=== PATIENT | male | born 1945 | race Caucasian/White ===

== ENCOUNTER 2016-09-18 08:43 | Emergency (ER) | payer MEDICARE ==
--- NOTE | 2016-10-04 15:23 | ER ---
ADMIT: 09/18/2016 RM/LOC: ER [facility] MR#: [id number] ACC#: [id number] [id number] [place], [place] [id number] [place] [address] Emergency Room Report SEX: M AGE: 71 : 1945 DATE: 09/18/2016 HISTORY OF PRESENT ILLNESS: The patient is a 71-year-old with a blind spot in his vision that started last night, and as of today, it is resolved. He said he was eating supper with his when she had some difficulty understanding some of the words but it is resolved. 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 I explained to them that if he did have a stroke, it was a little too late to do much, but we are going to go ahead and do a CT scan and take a look and we did. On physical examination, he has no deficit. He explains that there is a parietal area that had a small side effect from the previous stroke and he just wanted to let me know about that, so when they did the CT scan, they would be aware that that was something that was present. PAST MEDICAL HISTORY: 1. Hypertension. 2. Diabetes. 3. Knee arthritis. 4. CVA while he was having a rehab. 5. IA in 2004. 6. An appendectomy and stents with CABG. MEDICATIONS: Include: 1. Carvedilol. 2. Lisinopril. 3. Metformin. 4. Meloxicam. 5. Baby aspirin. 6. Atorvastatin. 7. Tamsulosin. PHYSICAL EXAMINATION: He is pretty comfortable right now. is at bedside. On exam, there is no neurological deficit. The S[place] stroke scale is 0. On arrival and discharge, he did have a little bit of peripheral lateral gaze issues where he was unable to see much and had to move his head, but he says that something that he might have had in a while back. He did have an eye exam about 2 weeks ago at the [facility] and everything was fine. LABORATORY AND RADIOGRAPHIC DATA: His white count was normal, hemoglobin is 12.6 with a hematocrit of 38. Calcium 8.3. CK 162 with a normal troponin. He ADMIT: 09/18/2016 RM/LOC: ER [facility] MR#: [id number] [address] [id number] RIAZ HENRY [address] [place] [address] Emergency Room Report SEX: M AGE: 71 : 1945 has chest x-ray does show sternotomy changes, otherwise, it is negative. CT of the head shows hypodensity within the right parietal lobe 1.3 cm inside. No acute changes identified. EKG sinus shaunna at 57. The patient states he is hungry so he is going home and eat and wait [facility]. His next appointment actually is in December 2016. CLINICAL IMPRESSION: Suspected transient ischemic attack. Advised that he will have to follow up with the [facility]. I contacted [facility], and [facility]or anticoagulant therapy. The patient verbalized understanding. at bedside. They will be [facility] with the [facility]. SHYANNE Anderson / Fabian Gonzalez MD / seanl JOB #: [id number] CC: Fabian Gonzalez MD, Attending Physician [facility] Physician, Family Physician
== END 2016-09-18 12:15 | disposition home or self-care (01) ==
LOC: ER 08:43
DX: H54.7 Unspecified visual loss (principal); I10 Essential (primary) hypertension; E11.9 Type 2 diabetes mellitus without complications; I25.2 Old myocardial infarction; Z90.49 Acquired absence of other specified parts of digestive tract; Z95.1 Presence of aortocoronary bypass graft; Z86.73 Personal history of transient ischemic attack (TIA), and cerebral infarction without residual deficits; Z79.899 Other long term (current) drug therapy; Z79.82 Long term (current) use of aspirin; Z79.84 Long term (current) use of oral hypoglycemic drugs; Z87.891 Personal history of nicotine dependence